=== PATIENT | female | born 1945 | race Caucasian/White ===

== ENCOUNTER 2018-02-06 17:41 | Emergency (ER) | payer OTHER ==
[2018-02-06 18:43] LABS: Absolute Lymphocytes (CBC) 1.4 K/uL (0.7-4.9); Absolute Monocytes 0.8 K/uL (0.1-1.3); Absolute Neutrophil 4.4 K/uL (1.8-8.0); Basophils % 0.9 % (0-1.3); Eosinophils % 1.1 % (0-4.4); Hematocrit 37.2 % (36.0-45.0); Lymphocytes % 20.9 % (15.3-44.8); MCH 28.9 pg (27.0-35.0); MCV 87.5 fL (80-100); MPV 6.8 fL (7.6-11.3); Monocytes % 12.1 % (3.3-12.3); RBC Red Blood Cell Count 4.25 M/uL (3.86-4.86)
[2018-02-06 18:48] LABS: Protime INR 1.05
[2018-02-06 18:48] LABS: Urine Bacteria 20-50 /HPF (<20); Urine Culture Reflex Order NOT NEEDED
[2018-02-06 19:01] LABS: ALT/SGPT 15 U/L (12-78); AST/SGOT 13 U/L (15-37); Albumin 3.6 g/dL (3.4-5.0); Alkaline Phosphatase 66 U/L (45-117); BUN Blood Urea Nitrogen 25 mg/dL (7-18); Bicarbonate 27 mmol/L (21-32); Bilirubin Direct 0.1 mg/dL (0-0.2); Bilirubin Total 0.3 mg/dL (0.2-1.0); CKMB Creatine Kinase MB < 1.0 ng/mL (0.3-3.6); Creatine Phosphokinase 38 U/L (26-192); Glucose Level 78 mg/dL (74-106); Magnesium 1.9 mg/dL (1.8-2.4); NT PRO-BNP 812 pg/mL (<125); Potassium 4.1 mmol/L (3.5-5.1); Sodium Level 132 mmol/L (136-145)
--- NOTE | 2018-02-06 19:11 | RAD REPORT ---
EXAM DESCRIPTION: RAD - Chest Single View - 02/06/2018 6:55 pm CLINICAL HISTORY: Sweat, chills, dizziness COMPARISON: None. TECHNIQUE: AP portable chest image was obtained 1849 hours . FINDINGS: Low lung volumes are present. No peripheral mass or consolidation. Heart size is normal. V asculature and lung markings are accentuated by shallow inspiration and portable technique. True sign ificant failure or volume overload doubtful. No measurable pleural effusion and no pneumothorax. No g ross bony abnormality seen. No acute aortic findings suspected. IMPRESSION: No focal lung parenchymal process. Inspiratory effort is very shallow potentially masking early interstitial edema or infiltrate.
[2018-02-06 20:28] LABS: Urine Blood 1+ (NEG); Urine Glucose NEGATIVE (NEG); Urine Protein NEGATIVE (NEG); Urine Specific Gravity 1.015 (1.005-1.030); Urine pH 5.5 (5.0-7.0)
[2018-02-06] MEDS ORDERED: AMOX/K CLAV 875 MG TAB ONE (20:30)
--- NOTE | 2018-02-06 20:34 | EDPHYS ---
Physician Documentation [facility] Name: Maritza Matos Age: 72 yrs Sex: Female : 1945 Arrival Date: 02/06/2018 Time: 17:44 Bed 18 Private MD: out of town, doctor ED Physician Matteo Higuera HPI: 02/06 18:20 This 72 yrs old Female presents to ER via Ambulatory with complaints of Back snw Pain, Dizziness. 18:20 The patient presents with pain that is chronic, recent foot fracture, boot placed and snw made pt gait un-level. Using splint to left foot to even gait. Pt states one splint was aggravating chronic back pain. Now with nausea, anorexia. Using [place] for pain, not eating well.. The symptoms are located in the low back. The pain does not radiate. Associated signs and symptoms: The patient has no apparent associated signs or symptoms. The problem was sustained as above. Severity of symptoms: At their worst the symptoms were moderate. It is unknown whether or not the patient has had similar symptoms in the past. The patient has been recently seen by a physician: with different complaint(s), and apparently was diagnosed with foot fracture, was given a prescription for pain medications, and was referred to a specialist. Historical: - Allergies: 18:20 Bactrim; iw 18:20 Cefdinir; iw 18:20 Biaxin; iw 18:20 Levaquin; iw 18:20 SHELLFISH; iw 18:20 Zithromax; iw - Home Meds: 18:19 albuterol sulfate 0.63 mg/3 mL Nebulizer nebu every 6 hours [Active]; albuterol sulfate iw 90 mcg/actuation Inhl HFAA 2 puffs every 6 hours [Active]; alprazolam 0.25 mg Oral TbDL 1 tab 3 times per day [Active]; aspirin 81 mg Oral TbEC 1 tab once daily [Active]; carvedilol 12.5 mg oral tab 1 tab 2 times per day [Active]; citalopram 40 mg tab 1 tab once daily [Active]; famotidine 20 mg Oral tab 1 tab every 12 hours [Active]; fluticasone 50 mcg/actuation nasal spsn 1 spray 2 times per day [Active]; furosemide 20 mg Oral tab 1 tab once daily [Active]; gabapentin 600 mg oral tab 1 tab 3 times per day [Active]; hydrocodone-acetaminophen 5-325 mg Oral tab 1 tab every 4-6 hours [Active]; lisinopril 20 mg Oral tab 2 tabs once daily [Active]; metformin 500 mg Oral Tb24 2 tabs once daily [Active]; montelukast 10 mg oral tab 1 tab once daily [Active]; pantoprazole 40 mg oral TbEC 1 tab once daily [Active]; rosuvastatin 10 mg oral tab 1 tab once daily [Active]; Vitamin D3 2,000 unit oral tab daily [Active]; - PSHx: 18:19 right elbow; iw - Immunization history:: Adult Immunizations up to date. - Social history:: Smoking status: Patient uses tobacco products, smokes one-half pack cigarettes per day. - Ebola Screening: : Patient negative for fever greater than or equal to 101.5 degrees Fahrenheit, and additional compatible Ebola Virus Disease symptoms Patient denies exposure to infectious person Patient denies travel to an Ebola-affected area in the 21 days before illness onset No symptoms or risks identified at this time. ROS: 18:16 Eyes: Negative for injury, pain, redness, and discharge, ENT: Negative for injury, snw pain, and discharge, Neck: Negative for injury, pain, and swelling, Cardiovascular: Negative for chest pain, palpitations, and edema, Respiratory: Negative for shortness of breath, cough, wheezing, and pleuritic chest pain. 18:16 : Negative for injury, bleeding, discharge, and swelling. 18:16 Skin: Negative for injury, rash, and discoloration. 18:16 Constitutional: Positive for fatigue, malaise, poor PO intake. 18:16 Abdomen/GI: Positive for nausea. 18:16 Abdomen/GI: Positive for constipation. 18:16 Back: Positive for pain at rest, pain with movement. 18:16 MS/extremity: Positive for injury or acute deformity, recent right foot fx. 18:16 Neuro: Positive for pt stated she felt dizzy but when questioned if she was spinning or if the room were spinning. Pt denies dizziness and states she just feels out of it, clammy and nauseated at intervals.. Exam: 18:14 Constitutional: This is a well developed, well nourished patient who is awake, alert, snw and in no acute distress. Head/Face: Normocephalic, atraumatic. Eyes: Pupils equal round and reactive to light, extra-ocular motions intact. Lids and lashes normal. Conjunctiva and sclera are non-icteric and not injected. Cornea within normal limits. Periorbital areas with no swelling, redness, or edema. ENT: Nares patent. No nasal discharge, no septal abnormalities noted. Tympanic membranes are normal and external auditory canals are clear. Oropharynx with no redness, swelling, or masses, exudates, or evidence of obstruction, uvula midline. Mucous membranes moist. Neck: Trachea midline, no thyromegaly or masses palpated, and no cervical lymphadenopathy. Supple, full range of motion without nuchal rigidity, or vertebral point tenderness. No Meningismus. Chest/axilla: Normal chest wall appearance and motion. Nontender with no deformity. No lesions are appreciated. 18:14 Respiratory: Lungs have equal breath sounds bilaterally, clear to auscultation and percussion. No rales, rhonchi or wheezes noted. No increased work of breathing, no retractions or nasal flaring. 18:14 Abdomen/GI: Soft, non-tender, with normal bowel sounds. No distension or tympany. No guarding or rebound. No evidence of tenderness throughout. Back: No spinal tenderness. No costovertebral tenderness. Full range of motion. Skin: Warm, dry with normal turgor. Normal color with no rashes, no lesions, and no evidence of cellulitis. Neuro: Awake and alert, GCS 15, oriented to person, place, time, and situation. Cranial nerves II-XII grossly intact. Motor strength 5/5 in all extremities. Sensory grossly intact. Cerebellar exam normal. Normal gait. Psych: Awake, alert, with orientation to person, place and time. Behavior, mood, and affect are within normal limits. 18:14 Cardiovascular: Rate: normal, Rhythm: regular, Pulses: no pulse deficits are appreciated, Heart sounds: murmur, systolic, grade 3 over 6, Edema: is not appreciated. 18:14 Musculoskeletal/extremity: Extremities: grossly normal except: contusion, recent fracture to right foot, splint on left foot to keep pt level second to chronic back pain (L5), ROM: no acute changes, Circulation is intact in all extremities. Sensation intact. Vital Signs: 18:21 BP 167 / 58; Pulse 57; Resp 16 S; Temp 97.8(TE); Pulse Ox 99% on R/A; Weight 79.38 kg; iw Height 5 ft. 2 in. (157.48 cm); Pain 0/10; 19:00 BP 153 / 66; Pulse 58; Resp 18; Pulse Ox 99% ; ea 20:30 BP 145 / 59; Pulse 57; Resp 18; Temp 97.8; Pulse Ox 97% on R/A; Pain 0/10; ea 18:21 Body Mass Index 32.01 (79.38 kg, 157.48 cm) iw MDM: 17:57 Patient medically screened. snw 20:57 Data reviewed: vital signs, nurses notes. Data interpreted: Pulse oximetry: on room air snw is 97 %. Interpretation: normal. Counseling: I had a detailed discussion with the patient and/or guardian regarding: the historical points, exam findings, and any diagnostic results supporting the discharge/admit diagnosis, the presence of at least one elevated blood pressure reading (>120/80) during this emergency department visit, lab results, radiology results, the need for outpatient follow up, for definitive care, to return to the emergency department if symptoms worsen or persist or if there are any questions or concerns that arise at home. Special discussion: I have referred the patient to see his PCP for further evaluation of high blood pressure. Based on the history and exam findings, there is no indication for further emergent testing or inpatient evaluation. I discussed with the patient/guardian the need to see the orthopedic surgeon for further evaluation of the symptoms. I discussed with the patient/guardian the need to see the primary care provider for further evaluation of the symptoms. 02/06 18:07 Order name: Basic Metabolic Panel; Complete Time: 19:05 snw 02/06 18:07 Order name: CBC with Diff; Complete Time: 19:01 snw 02/06 18:07 Order name: Ckmb; Complete Time: 19:05 snw 02/06 18:07 Order name: CPK; Complete Time: 19:05 snw 02/06 18:07 Order name: LFT's; Complete Time: 19:05 snw 02/06 18:07 Order name: Magnesium; Complete Time: 19:05 snw 02/06 18:07 Order name: NT PRO-BNP; Complete Time: 19:05 snw 02/06 18:07 Order name: PT-INR; Complete Time: 19:01 snw 02/06 18:07 Order name: Ptt, Activated; Complete Time: 19:01 snw 02/06 18:07 Order name: Troponin (emerg Dept Use Only); Complete Time: 19:01 snw 02/06 18:07 Order name: XRAY Chest (1 view); Complete Time: 19:17 snw 02/06 18:08 Order name: Urine Microscopic Only; Complete Time: 18:51 snw 02/06 18:08 Order name: Urine Culture snw 02/06 18:26 Order name: Urine Dipstick--Ancillary (enter results); Complete Time: 20:35 mb4 02/06 18:07 Order name: EKG; Complete Time: 18:08 snw 02/06 18:07 Order name: Cardiac monitoring; Complete Time: 18:34 snw 02/06 18:07 Order name: EKG - Nurse/Tech; Complete Time: 18:34 snw 02/06 18:07 Order name: IV Saline Lock; Complete Time: 18:34 snw 02/06 18:07 Order name: Labs collected and sent; Complete Time: 18:34 snw 02/06 18:07 Order name: O2 Per Protocol; Complete Time: 18:34 snw 02/06 18:07 Order name: O2 Sat Monitoring; Complete Time: 18:34 snw 02/06 18:07 Order name: Urine Dipstick-Ancillary (obtain specimen); Complete Time: 18:34 snw Administered Medications: 20:23 CANCELLED (other intervention used): Macrobid 100 mg PO once; administer with food snw 20:25 Drug: Augmentin 875 mg Route: PO; ea 20:42 Follow up: Response: No adverse reaction ea Disposition: 02/06/18 20:33 Discharged to Home. Impression: Urinary tract infection, site not specified, Fluid overload, unspecified. - Condition is Stable. - Discharge Instructions: Back Pain, Adult, Urinary Tract Infection, Adult, Hypertension, [id number]. - Prescriptions for Augmentin 875- 125 mg Oral Tablet - take 1 tablet by ORAL route every 12 hours for 10 days; 20 tablet. - Medication Reconciliation Form, Thank You Letter, Antibiotic Education, Prescription Opioid Use form. - Follow up: Private Physician; When: 2 - 3 days; Reason: Recheck today's complaints, Continuance of care, Re-evaluation by your physician. Follow up: Emergency Department; When: As needed; Reason: Worsening of condition. Addendum: 02/08/2018 08:14 Co-signature as Attending Physician, Matteo Higuera MD I agree with the assessment and w a plan of care. Signatures: Dispatcher [employer] EDMS Renate Trujillo, JACOB-C WORK FORCE ADVISOR-Csnw Opal John, RN RN Nicole Beck RN Matteo Aguirre ea, MD MD wa Corrections: (The following items were deleted from the chart) 02/06 20: 20:10 Macrobid 100 mg PO once; administer with food ordered. snw snw 20:43 20:33 02/06/2018 20:33 Discharged to Home. Impression: Urinary tract infection, site ea not specified; Fluid overload, unspecified. Condition is Stable. Forms are Medication Reconciliation Form, Thank You Letter, Antibiotic Education, Prescription Opioid Use. Follow up: Private Physician; When: 2 - 3 days; Reason: Recheck today's complaints, Continuance of care, Re-evaluation by your physician. Follow up: Emergency Department; When: As needed; Reason: Worsening of condition. snw
--- NOTE | 2018-02-06 20:34 | ER ---
Nurse's Notes [facility] Name: Maritza Matos Age: 72 yrs Sex: Female : 1945 Arrival Date: 02/06/2018 Time: 17:44 Bed 18 Private MD: out of town, doctor Diagnosis: Urinary tract infection, site not specified;Fluid overload, unspecified Presentation: 02/06 18:00 Presenting complaint: Patient states: has not been feeling well, has sweats, chills, iw dizziness, nausea X 3 days, also fells like she has UTI, feels like she is not completely emptying bladder and has kidney pain described as burning. Transition of care: patient was not received from another setting of care. Onset of symptoms was February 03, 2018. Risk Assessment: Do you want to hurt yourself or someone else? Patient reports no desire to harm self or others. Initial Sepsis Screen: Does the patient meet any 2 criteria? No. Patient's initial sepsis screen is negative. Does the patient have a suspected source of infection? No. Patient's initial sepsis screen is negative. Care prior to arrival: None. 18:00 Method Of Arrival: Ambulatory iw 18:00 Acuity: ANGEL 3 iw Historical: - Allergies: 18:20 Bactrim; iw 18:20 Cefdinir; iw 18:20 Biaxin; iw 18:20 Levaquin; iw 18:20 SHELLFISH; iw 18:20 Zithromax; iw - Home Meds: 18:19 albuterol sulfate 0.63 mg/3 mL Nebulizer nebu every 6 hours [Active]; albuterol sulfate iw 90 mcg/actuation Inhl HFAA 2 puffs every 6 hours [Active]; alprazolam 0.25 mg Oral TbDL 1 tab 3 times per day [Active]; aspirin 81 mg Oral TbEC 1 tab once daily [Active]; carvedilol 12.5 mg oral tab 1 tab 2 times per day [Active]; citalopram 40 mg tab 1 tab once daily [Active]; famotidine 20 mg Oral tab 1 tab every 12 hours [Active]; fluticasone 50 mcg/actuation nasal spsn 1 spray 2 times per day [Active]; furosemide 20 mg Oral tab 1 tab once daily [Active]; gabapentin 600 mg oral tab 1 tab 3 times per day [Active]; hydrocodone-acetaminophen 5-325 mg Oral tab 1 tab every 4-6 hours [Active]; lisinopril 20 mg Oral tab 2 tabs once daily [Active]; metformin 500 mg Oral Tb24 2 tabs once daily [Active]; montelukast 10 mg oral tab 1 tab once daily [Active]; pantoprazole 40 mg oral TbEC 1 tab once daily [Active]; rosuvastatin 10 mg oral tab 1 tab once daily [Active]; Vitamin D3 2,000 unit oral tab daily [Active]; - PSHx: 18:19 right elbow; iw - Immunization history:: Adult Immunizations up to date. - Social history:: Smoking status: Patient uses tobacco products, smokes one-half pack cigarettes per day. - Ebola Screening: : Patient negative for fever greater than or equal to 101.5 degrees Fahrenheit, and additional compatible Ebola Virus Disease symptoms Patient denies exposure to infectious person Patient denies travel to an Ebola-affected area in the 21 days before illness onset No symptoms or risks identified at this time. Screenin:35 Abuse screen: Denies threats or abuse. Nutritional screening: No deficits noted. em Tuberculosis screening: No symptoms or risk factors identified. Fall Risk Secondary diagnosis (15 points) impaired mobility, Ambulatory Aid- Crutches/Cane/Walker (15 pts). Total [place]o Fall Scale indicates Low Risk Score (25-44 pts). Fall prevention measures have been instituted. Side Rails Up X 2 Placed close to Nursing Station. Assessment: 18:25 General: Appears in no apparent distress. comfortable, Behavior is calm, cooperative. em General: Reports chills for Denies. Pain: Denies pain. Neuro: Level of Consciousness is awake, alert, obeys commands, Oriented to person, place, time, situation, Speech is normal, Facial symmetry appears normal. Cardiovascular: Denies chest pain, Heart tones S1 S2 S3 present Murmur present Capillary refill < 3 seconds Patient's skin is warm and dry. Rhythm is sinus bradycardia. Respiratory: Airway is patent Respiratory effort is even, unlabored, Respiratory pattern is regular, symmetrical. GI: Abdomen is round non-distended, Reports nausea, vomiting. : Urine is clear, Reports burning with urination. EENT: No signs and/or symptoms were reported regarding the EENT system. Derm: Skin is intact, Skin is pink, warm \T\ dry. Musculoskeletal: Range of motion: intact in all extremities. 19:05 General: Appears in no apparent distress. comfortable, Behavior is calm, cooperative, ea appropriate for age. Pain: Denies pain. Neuro: Level of Consciousness is awake, alert, obeys commands, Oriented to person, place, time, situation. Cardiovascular: Heart tones S1 S2 Murmur present Patient's skin is warm and dry. Respiratory: Airway is patent Respiratory effort is even, unlabored, Respiratory pattern is regular, symmetrical. GI: Abdomen is non-distended, Reports pt reports nausea and vomiting earlier in the day. Derm: Skin is pink, warm \T\ dry. 20:34 Reassessment: Patient and/or family updated on plan of care and expected duration. Pain ea level reassessed. Patient is alert, oriented x 3, equal unlabored respirations, skin warm/dry/pink. Discharge instructions given to patient, verbalized the understanding of instruction. Patient states symptoms have improved. Vital Signs: 18:21 BP 167 / 58; Pulse 57; Resp 16 S; Temp 97.8(TE); Pulse Ox 99% on R/A; Weight 79.38 kg; iw Height 5 ft. 2 in. (157.48 cm); Pain 0/10; 19:00 BP 153 / 66; Pulse 58; Resp 18; Pulse Ox 99% ; ea 20:30 BP 145 / 59; Pulse 57; Resp 18; Temp 97.8; Pulse Ox 97% on R/A; Pain 0/10; ea 18:21 Body Mass Index 32.01 (79.38 kg, 157.48 cm) iw ED Course: 17:44 Patient arrived in ED. mr 17:44 out of town, doctor is Private Physician. mr 17:57 Renate Trujillo F[facility]-C [facility]. snw 17:57 Matteo Higuera MD is Attending Physician. snw 18:00 Zafar Jansen LVN is Primary Nurse. em 18:09 Triage completed. iw 18:19 Arm band placed on. iw 18:30 No provider procedures requiring assistance completed. Initial lab(s) drawn, by me, em sent to lab. Urine collected: clean catch specimen, clear, EKG done, by ED staff, reviewed by Matteo Higuera MD. Inserted saline lock: 20 gauge in right antecubital area, using aseptic technique. Blood collected. 18:34 Patient has correct armband on for positive identification. Placed in gown. Bed in low em position. Call light in reach. Side rails up X2. Adult w/ patient. 18:54 X-ray completed. Portable x-ray completed in exam room. Patient tolerated procedure kp1 well. 18:55 XRAY Chest (1 view) In Process Unspecified. EDMS 19:20 Primary Nurse role handed off by Zafar Jansen LVN rg2 19:23 Nicole Cardozo, RN is Primary Nurse. ea 20:30 IV discontinued, intact, bleeding controlled, No redness/swelling at site. Pressure ea dressing applied. Administered Medications: 20:23 CANCELLED (other intervention used): Macrobid 100 mg PO once; administer with food snw 20:25 Drug: Augmentin 875 mg Route: PO; ea 20:42 Follow up: Response: No adverse reaction ea Outcome: 20:33 Discharge ordered by MD. snw 20:39 Discharged to home ambulatory, with family. ea 20:39 Condition: improved 20:39 Discharge instructions given to patient, Instructed on discharge instructions, follow up and referral plans. medication usage, Demonstrated understanding of instructions, follow-up care, medications, Prescriptions given X 1. 20:43 Patient left the ED. ea Addendum: 02/11/2018 18:34 Addendum: Culture Results: Positive urine culture. Bacteria is resistant to, has i w intermediate sensitivity, or is not tested against prescribed antibiotics. Report given to ALTA for further evaluation and then to clinical researcher for follow up with patient. Phone call Attempt #1 pr did not answer, left voice mail with call back number. Signatures: Dispatcher [employer] EDKS Yamilet Jack rg2 Renate Trujillo, RECEIVING LEAD-C RECEIVING LEAD-Csnw Shayla Lemus mr Zafar Jansen LVN LVN em Williams, Irene, Mikala Thomson RN kp1 Nicole Cardozo, JOHN LOPEZ ea
--- NOTE | 2018-02-07 07:08 | EKG ---
Test Date: 2018-02-06 Test Time: 18:22:43 Track Service Person: LORA MEASUREMENT RESULTS: Intervals: Rate: 56 AK: 160 QRSD: 82 QT: 434 QTc: 418 [place]: P: 57 AK: 160 QRS: 3 T: 39 INTERPRETIVE STATEMENTS: Sinus bradycardia Otherwise normal ECG No previous ECG available for comparison Electronically Signed On 02-07-18 07:07:05 CDT by Nick Fenton
== END 2018-02-06 20:43 | disposition home or self-care (01) ==
LOC: ER 17:41
DX: N39.0 Urinary tract infection, site not specified (principal); E87.70 Fluid overload, unspecified; F17.210 Nicotine dependence, cigarettes, uncomplicated; Z79.82 Long term (current) use of aspirin; Z88.1 Allergy status to other antibiotic agents; Z88.8 Allergy status to other drugs, medicaments and biological substances; Z91.013 Allergy to seafood
CPT/HCPCS: 36415; 71045; 80048; 80076; 81003; 81015; 82550; 82553; 83735; 83880; 84484; 85025; 85610; 85730; 87077; 87086; 87088; 87186; 93005; 99284